=== PATIENT | male | born 1945 | race Caucasian/White ===

== ENCOUNTER 2016-12-17 11:35 | Observation (INO) | payer MEDICARE, MEDICAID ==
[~2016-12-17] VITALS: Ht 172.7 cm; Wt 78.0 kg
[2016-12-17] VITALS (7 sets, daily range): BP systolic 129–164; BP diastolic 69–80; PULSE 49–65; RESP 16–48; TEMP 97.8; O2SAT 96–98
--- NOTE | 2016-12-17 11:49 | PD ---
HPI Chief Complaint: chest pain Time Seen by Provider: 11:44 Travel History International Travel<30 days: No Contact w/Intl Traveler<30days: No Traveled to known affect area: No History of Present Illness HPI With recent history of syncope admitted at [facility] last week, presents to the ER today because he has had 2 days history of substernal chest pains which she states gets up to a 4 out of 10 at times, worsens with exertion. He states that it is gone now. He was seen at the OR this morning for the chest pains and was told to come to the ER. He denies any nausea, vomiting, shortness of breath, fevers, coughing, or any other symptoms. Modifying Factors: None Associated Signs & Symptoms: Chest pains Risk Factors: None PFSH Social History Tobacco Use: No Allergies-Medications (Allergen,Severity, Reaction): Coded Allergies: No Known Allergies (Unverified , 12/17/16) Reported Meds & Prescriptions Reported Meds & Active Scripts Active Reported Terazosin (Terazosin HCl) 5 Mg Cap 5 Mg PO HS Metoprolol Tartrate 25 Mg Tab 25 Mg PO BID Mobic (Meloxicam) 15 Mg Tab 15 Mg PO DAILY Vitamin B-12 (Cyanocobalamin) 1,000 Mcg Subl 1,000 Mcg SL DAILY Vitamin D3 (Cholecalciferol) 2,000 Unit Cap 2,000 Units PO DAILY Aspirin 81 Mg Tabdr 81 Mg PO DAILY Review of Systems Except as stated in HPI: all other systems reviewed are Neg Physical Exam Narrative GENERAL: Elderly male patient currently not in acute distress, awake and oriented 3. SKIN: Warm and dry. HEAD: Atraumatic. Normocephalic. EYES: Pupils equal and round. No scleral icterus. No injection or drainage. ENT: No nasal bleeding or discharge. Mucous membranes pink and moist. NECK: Trachea midline. No JVD. CARDIOVASCULAR: Slow and regular rhythm. No murmur appreciated. Pulses are present and equal bilaterally. RESPIRATORY: No accessory muscle use. Clear to auscultation. Breath sounds equal bilaterally. GASTROINTESTINAL: Abdomen soft, non-tender, nondistended. Hepatic and splenic margins not palpable. MUSCULOSKELETAL: No obvious deformities. No clubbing. No cyanosis. No edema. NEUROLOGICAL: Awake and alert. No obvious cranial nerve deficits. Motor grossly within normal limits. Normal speech. PSYCHIATRIC: Appropriate mood and affect; insight and judgment normal. Data Data Last Documented VS Vital Signs Date Time Temp Pulse Resp B/P Pulse Ox O2 Delivery O2 Flow Rate FiO2 12/17/16 11:56 49 18 97 Nasal Cannula 2 12/17/16 11:56 164/80 129/70 12/17/16 11:48 97.8 Orders Electrocardiogram (12/17/16 11:44) Ckmb (Isoenzyme) Profile (12/17/16 11:44) Complete Blood Count With Diff (12/17/16 11:44) Comprehensive Metabolic Panel (12/17/16 11:44) Magnesium (Mg) (12/17/16 11:44) Prothrombin Time / Inr (Pt) (12/17/16 11:44) Act Partial Throm Time (Ptt) (12/17/16 11:44) Troponin I (12/17/16 11:44) Chest, Single Ap (12/17/16 11:44) Ecg Monitoring (12/17/16 11:44) Bilateral Bp Monitoring (12/17/16 11:44) Iv Access Insert/Monitor (12/17/16 11:44) Oximetry (12/17/16 11:44) Oxygen Administration (12/17/16 11:44) Labs Laboratory Tests Test 12/17/16 12:10 White Blood Count 10.0 TH/MM3 Red Blood Count 4.41 MIL/MM3 Hemoglobin 11.8 GM/DL Hematocrit 35.7 % Mean Corpuscular Volume 80.9 FL Mean Corpuscular Hemoglobin 26.9 PG Mean Corpuscular Hemoglobin 33.2 % Concent Red Cell Distribution Width 13.5 % Platelet Count 251 TH/MM3 Mean Platelet Volume 8.9 FL Neutrophils (%) (Auto) 72.0 % Lymphocytes (%) (Auto) 17.2 % Monocytes (%) (Auto) 8.8 % Eosinophils (%) (Auto) 1.5 % Basophils (%) (Auto) 0.5 % Neutrophils # (Auto) 7.2 TH/MM3 Lymphocytes # (Auto) 1.7 TH/MM3 Monocytes # (Auto) 0.9 TH/MM3 Eosinophils # (Auto) 0.2 TH/MM3 Basophils # (Auto) 0.0 TH/MM3 CBC Comment DIFF FINAL Differential Comment Prothrombin Time 10.8 SEC Prothromb Time International 1.0 RATIO Ratio Activated Partial 27.0 SEC Thromboplast Time Sodium Level 140 MEQ/L Potassium Level 4.4 MEQ/L Chloride Level 106 MEQ/L Carbon Dioxide Level 27.1 MEQ/L Anion Gap 7 MEQ/L Blood Urea Nitrogen 20 MG/DL Creatinine 0.75 MG/DL Estimat Glomerular Filtration 102 ML/MIN Rate Random Glucose 105 MG/DL Calcium Level 9.1 MG/DL Magnesium Level 2.0 MG/DL Total Bilirubin 0.2 MG/DL Aspartate Amino Transf 10 U/L (AST/SGOT) Alanine Aminotransferase 17 U/L (ALT/SGPT) Alkaline Phosphatase 97 U/L Total Creatine Kinase 49 U/L Troponin I LESS THAN 0.02 NG/ML Total Protein 6.9 GM/DL Albumin 3.1 GM/DL MDM Medical Decision Making Medical Screen Exam Complete: Yes Emergency Medical Condition: Yes Medical Record Reviewed: Yes Interpretation(s) EKG shows that his bradycardia at a rate of 48 bpm with no signs of acute ST-T changes. There is a partial right bundle branch block pattern. Laboratory Tests Test 12/17/16 12:10 Red Blood Count 4.41 MIL/MM3 (4.50-5.90) Hemoglobin 11.8 GM/DL (13.0-17.0) Hematocrit 35.7 % (39.0-51.0) Mean Corpuscular Hemoglobin 26.9 PG (27.0-34.0) Neutrophils (%) (Auto) 72.0 % (16.0-70.0) Monocytes (%) (Auto) 8.8 % (0.0-8.0) Blood Urea Nitrogen 20 MG/DL (7-18) Aspartate Amino Transf 10 U/L (15-37) (AST/SGOT) Troponin I LESS THAN 0.02 NG/ML (0.02-0.05) Albumin 3.1 GM/DL (3.4-5.0) Last 24 hours Impressions Chest X-Ray 12/17/16 1144 Signed Impressions: Service Date/Time: Saturday, December 17, 2016 11:46 - CONCLUSION: No acute cardiopulmonary process. Haider German MD Differential Diagnosis Chest painsdysrhythmias versus ACS versus metabolic issues Narrative Course Patient has significant bradycardia was a suspect could be contributing to his intermittent chest pain and syncope. My plan would be to admit the patient for further evaluation and treatment. However, in the ER, he is not having current chest pain. Case is discussed with Dr. Andres for admission for further evaluation. Diagnosis Primary Impression: OTHER CHEST PAIN Additional Impression: Symptomatic bradycardia Admitting Information Admitting Physician Requests: Admit Hang Molina MD Dec 17, 2016 11:48 Hang Molina MD Dec 17, 2016 11:48
[2016-12-17] MEDS ORDERED: VITA100021 SL (12:07)
[2016-12-17] MEDS ORDERED: VITA2000 PO (12:07)
[2016-12-17] MEDS ORDERED: TERA5CAP3 PO (12:07)
[2016-12-17] MEDS ORDERED: ASPI1TAB69 PO (12:07)
[2016-12-17] MEDS ORDERED: METO25TA3 PO (12:07)
[2016-12-17] MEDS ORDERED: MOBI15TA PO (12:07)
--- NOTE | 2016-12-17 12:15 | RADRPT ---
EXAM DATE/TIME: 12/17/2016 11:46 [facility] COMPARISON: No previous studies available for comparison. INDICATIONS : Chest pain. MEDICAL HISTORY : None. SURGICAL HISTORY : None. ENCOUNTER: Initial ACUITY: 1 day PAIN SCORE: 0/10 LOCATION: Bilateral chest FINDINGS: A single view of the chest demonstrates the lungs to be symmetrically aerated without evidence of mas s, infiltrate or effusion. The cardiomediastinal contours are unremarkable. Osseous structures are intact with some degenerative spurring of the dorsal spine. CONCLUSION: No acute cardiopulmonary process. Haider German MD on December 17, 2016 at 12:13 Board Certified Radiologist. This report was verified electronically.
[2016-12-17 12:32] LABS: AUTOMATED NEUTROPHIL # 7.2 TH/MM3 (1.8-7.7); BASOPHIL % 0.5 % (0.0-2.0); EOSINOPHIL # 0.2 TH/MM3 (0-0.4); EOSINOPHIL % 1.5 % (0.0-4.0); HEMATOCRIT 35.7 % (39.0-51.0); HEMO FLAGS DIFF FINAL; LYMPH % 17.2 % (9.0-44.0); LYMPHOCYTE # 1.7 TH/MM3 (1.0-4.8); MEAN CELL VOLUME 80.9 FL (80.0-100.0); MEAN CORPUSCULAR HEMOGLOBIN 26.9 PG (27.0-34.0); MEAN CORPUSCULAR HGB CONC 33.2 % (32.0-36.0); MONO % 8.8 % (0.0-8.0); PLATELET COUNT 251 TH/MM3 (150-450); RED BLOOD COUNT 4.41 MIL/MM3 (4.50-5.90); RED CELL DISTRIBUTION WIDTH 13.5 % (11.6-17.2)
[2016-12-17 12:42] LABS: PROTHROMBIN TIME - PATIENT 10.8 SEC (9.8-11.6)
[2016-12-17 12:52] LABS: ANION GAP 7 MEQ/L (5-15); AST (GOT) 10 U/L (15-37); BICARBONATE 27.1 MEQ/L (21.0-32.0); BLOOD UREA NITROGEN 20 MG/DL (7-18); CHLORIDE 106 MEQ/L (98-107); GLOMERULAR FILTRATION RATE 102 ML/MIN (>89); POTASSIUM 4.4 MEQ/L (3.5-5.1); SODIUM (NA) 140 MEQ/L (136-145)
[2016-12-17 12:56] LABS: ALKALINE PHOSPHATASE 97 U/L (45-117); ALT (GPT) 17 U/L (12-78); TOTAL BILIRUBIN ADULT 0.2 MG/DL (0.2-1.0)
[2016-12-17 12:59] LABS: CREATINE KINASE 49 U/L (39-308)
[2016-12-17] MEDS ORDERED: NALOXONE HCL 0.4 MG/ML AMP IV PRN (15:00)
[2016-12-17] MEDS ORDERED: ACETAMINOPHEN 325 MG TAB PO PRN ×2 (15:00)
[2016-12-17] MEDS ORDERED: NITROGLYCERIN 0.4 MG SL 25 TABS/BTL SL PRN (15:00)
[2016-12-17] MEDS ORDERED: TEMAZEPAM 15 MG CAP PO PRN (15:00)
[2016-12-17] MEDS ORDERED: ONDANSETRON HCL 4 MG/2 ML VIAL IVP PRN (15:00)
[2016-12-17] MEDS ORDERED: ALPRAZolam 0.25 MG TAB PO PRN (15:00)
[2016-12-17] MEDS ORDERED: SODIUM CHLORIDE 0.9% FLUSH 10 ML FLUSH IV FLUSH PRN (15:00)
--- NOTE | 2016-12-17 15:17 | HHI.HP ---
[facility] Admission Diagnosis chest pains/bradycardia Diagnoses: (1) Syncope and collapse (2) Benign hypertension (3) Atypical chest pain (4) Unstable angina (5) Symptomatic bradycardia Chief Complaint: Chest pain Travel History International Travel<30 Days: No Contact w/Intl Traveler <30 Da: No Traveled to Known Affected Are: No History of Present Illness 71 yrs old man with a PMH of Prostate cancer, Hypertension was advised by his PCP at the [facility] today to seek medical attention to the nearest ED for evaluation of continuing syncopal episode along with chest pain described as substernal without any radiation or associated diaphoresis rated over 5/10 in intensity not relieved with nitroglycerin sublingual. Chest pain is also associated with shortness of breath. Patient was seen recently and admitted at [facility] last weekend when he was treated for 2 days secondary to syncopal episode along with chest pain. He reported that he had normal studies done and discharged in stable condition to me however continue to have repeated syncopal episode with collapse along with substernal chest pain. He denies any GI bleeds, or head trauma. Review of Systems Other 12 systems reviewed and are negative except for the one mentioned in history of present illness Past Family Social History Past Medical History Hypertension Hyperlipidemia CAD History of prostate cancer Past Surgical History Left total hip arthroplasty 2016 Surgery for prostate cancer, radiation Reported Medications Terazosin (Terazosin HCl) 5 Mg Cap 5 Mg PO HS Metoprolol Tartrate 25 Mg Tab 25 Mg PO BID Mobic (Meloxicam) 15 Mg Tab 15 Mg PO DAILY Vitamin B-12 (Cyanocobalamin) 1,000 Mcg Subl 1,000 Mcg SL DAILY Vitamin D3 (Cholecalciferol) 2,000 Unit Cap 2,000 Units PO DAILY Aspirin 81 Mg Tabdr 81 Mg PO DAILY Allergies: Coded Allergies: No Known Allergies (Unverified , 12/17/16) Family History Family history positive for diabetes and heart disease Social History Denies current tobacco, alcohol or illicit drug intake Physical Exam Vital Signs Vital Signs Date Time Temp Pulse Resp B/P Pulse Ox O2 Delivery O2 Flow Rate FiO2 12/17/16 11:56 49 18 97 Nasal Cannula 2 12/17/16 11:56 18 98 Nasal Cannula 2 12/17/16 11:56 98 Nasal Cannula 2 12/17/16 11:56 164/80 129/70 12/17/16 11:48 97.8 49 18 164/80 97 Physical Exam GENERAL: This is a well-nourished, well-developed patient, in no apparent distress. SKIN: No rashes, ecchymoses or lesions. Cool and dry. HEAD: Atraumatic. Normocephalic. No temporal or scalp tenderness. EYES: Pupils equal round and reactive. Extraocular motions intact. No scleral icterus. No injection or drainage. ENT: Nose without bleeding, purulent drainage or septal hematoma. Throat without erythema, tonsillar hypertrophy or exudate. Uvula midline. Airway patent. NECK: Trachea midline. No JVD or lymphadenopathy. Supple, nontender, no meningeal signs. CARDIOVASCULAR: Regular rate and rhythm without murmurs, gallops, or rubs. RESPIRATORY: Clear to auscultation. Breath sounds equal bilaterally. No wheezes , rales, or rhonchi. GASTROINTESTINAL: Abdomen soft, non-tender, nondistended. No hepato-splenomegaly , or palpable masses. No guarding. MUSCULOSKELETAL: Extremities without clubbing, cyanosis, or edema. No joint tenderness, effusion, or edema noted. No calf tenderness. Negative Homans sign bilaterally. NEUROLOGICAL: Awake and alert. Cranial nerves II through XII intact. Motor and sensory grossly within normal limits. Five out of 5 muscle strength in all muscle groups. Normal speech. Laboratory Laboratory Tests Test 12/17/16 12:10 White Blood Count 10.0 Red Blood Count 4.41 Hemoglobin 11.8 Hematocrit 35.7 Mean Corpuscular Volume 80.9 Mean Corpuscular Hemoglobin 26.9 Mean Corpuscular Hemoglobin 33.2 Concent Red Cell Distribution Width 13.5 Platelet Count 251 Mean Platelet Volume 8.9 Neutrophils (%) (Auto) 72.0 Lymphocytes (%) (Auto) 17.2 Monocytes (%) (Auto) 8.8 Eosinophils (%) (Auto) 1.5 Basophils (%) (Auto) 0.5 Neutrophils # (Auto) 7.2 Lymphocytes # (Auto) 1.7 Monocytes # (Auto) 0.9 Eosinophils # (Auto) 0.2 Basophils # (Auto) 0.0 CBC Comment DIFF FINAL Differential Comment Prothrombin Time 10.8 Prothromb Time International 1.0 Ratio Activated Partial 27.0 Thromboplast Time Sodium Level 140 Potassium Level 4.4 Chloride Level 106 Carbon Dioxide Level 27.1 Anion Gap 7 Blood Urea Nitrogen 20 Creatinine 0.75 Estimat Glomerular Filtration 102 Rate Random Glucose 105 Calcium Level 9.1 Magnesium Level 2.0 Total Bilirubin 0.2 Aspartate Amino Transf 10 (AST/SGOT) Alanine Aminotransferase 17 (ALT/SGPT) Alkaline Phosphatase 97 Total Creatine Kinase 49 Troponin I LESS THAN 0.02 Total Protein 6.9 Albumin 3.1 Result Diagram: 12/17/16 1210 12/17/16 1210 Imaging Last Impressions Chest X-Ray 12/17/16 1144 Signed Impressions: Service Date/Time: Saturday, December 17, 2016 11:46 - CONCLUSION: No acute cardiopulmonary process. Haider German MD Assessment and Plan Problem List: (1) Unstable angina ICD Code: I20.0 Status: Acute (2) Symptomatic bradycardia ICD Code: R00.1 Status: Acute (3) Atypical chest pain ICD Code: R07.89 Status: Acute (4) Benign hypertension ICD Code: I10 Status: Acute Assessment and Plan 71-year-old man with Unstable angina Symptomatic bradycardia Syncope -ACS ruled out per protocol with serial cardiac enzyme and EKG -check 2-D echo, lipid profile -Nucleus stress test in a.m. -Consult cardiology -Continue with nitroglycerin sublingual when necessary, aspirin and hold beta charlie secondary to bradycardia. We will use instead calcium channel charlie Syncopal episode with collapse -Recently admitted to [facility] 12/10/16 through 12/12/16 and all studies performed including head CT and carotid ultrasound per patients were all negative. Will request reports Hypertension -Hold beta charlie and start Norvasc Hyperlipidemia: Lipitor 10 mg at bedtime Check Lipid profile History of prostate BPH Patient is refusing finasteride Code Status Full code Discussed Condition With Patient, Chun Andres MD Dec 17, 2016 15:17
[2016-12-17] MEDS ORDERED: ENALAPRILAT 1.25 MG/ML VIAL IV PUSH PRN (15:30)
[2016-12-17] MEDS ORDERED: RESP: ALBUTEROL 2.5 MG/IPRATROPIUM 0.5 MG NEB (PRN) NEB (15:30)
[2016-12-17 17:45] LABS: CREATINE KINASE 46 U/L (39-308)
[2016-12-17] MEDS ORDERED: ATORVASTATIN 10 MG TAB PO SCH (21:00)
[2016-12-17] MEDS: SODIUM CHLORIDE 0.9% FLUSH 10 ML FLUSH IV FLUSH SCH (21:31)
--- NOTE | 2016-12-17 22:38 | MB ---
cc: CAMERON RAMEY MD DATE OF CONSULTATION 12/17/16 HISTORY OF PRESENT ILLNESS Mr. Powers is a 71 year old white male with history of hypertension and prostate cancer. He was seen at [facility] recently for syncope and history of chest pain. He was discharged home and sent to the [facility]. He was seen at the [facility] today and was still complaining of moderate chest discomfort which was sharp and was not relieved with nitroglycerine. He has no shortness of breath, paroxysmal nocturnal dyspnea, orthopnea, or edema. PAST MEDICAL HISTORY 1. Hypertension 2. Dyslipidemia 3. Coronary artery disease 4. Prostate cancer 5. Left total hip arthroplasty 6. Surgery and radiation for prostate cancer MEDICATIONS 1. Baby aspirin 2. Vitamin D3 3. Vitamin B12 4. Mobic 5. Metoprolol 25 mg twice a day 6. Terazosin ALLERGIES None. SOCIAL HISTORY The patient does not smoke. He does not drink alcohol. FAMILY HISTORY Positive for heart disease. REVIEW OF SYSTEMS Otherwise negative. PHYSICAL EXAMINATION VITAL SIGNS: Blood pressure 140/69, pulse 54 and regular. HEENT: Negative, 2+ carotid upstrokes, no bruits. LUNGS: Clear. HEART: Regular with no murmurs, rubs or gallops ABDOMEN: Soft, no bruits. EXTREMITIES: Without edema, 2+ distal pulses. NEUROLOGIC: Grossly nonfocal. CARDIOLOGY STUDIES Electrocardiogram was reviewed and showed sinus bradycardia and right bundle branch block. LABORATORY DATA Hemoglobin 11.8, potassium 4.4, creatinine 0.75, AST 10, ALT 17, troponin less than 0.02. BNP 37. DIAGNOSES 1. Unspecified angina 2. Recent syncope 3. Sinus bradycardia 4. Hypertension DISPOSITION Mr. Dwyer will be monitored on telemetry. We will hold his beta charlie due to his bradycardia. Norvasc was started for his hypertension. He will be scheduled for adenosine myocardial perfusion study tomorrow to evaluate for ischemia. We will obtain echocardiogram to evaluate his left ventricular function. I will follow him for cardiology during his hospitalization. He will then follow up at the [facility] after discharge. Cameron Ramey MD OMarie/ /5:10 PM /10:27 PM [facility]
[2016-12-17 22:54] LABS: CREATINE KINASE 43 U/L (39-308)
[2016-12-18] VITALS (11 sets, daily range): BP systolic 112–155; BP diastolic 60–80; PULSE 52–94; RESP 16–18; TEMP 98.4; O2SAT 96–100
--- NOTE | 2016-12-18 00:01 | EC ---
Study Study Date:12/17/2016 STUDY CONCLUSIONS SUMMARY - Left ventricle: The cavity size was normal. Wall thickness was normal. Systolic function was normal. The estimated ejection fraction was 55%. Wall motion was normal; there were no regional wall motion abnormalities. - Mitral valve: Mild regurgitation. - Tricuspid valve: Mild regurgitation. If LV function is below 40, please consider prescribing an ACEI or ARB or document rationale for non-use. PROCEDURE DATA STUDY STATUS: Elective. Procedure: Transthoracic echocardiography. Image quality was good. Scanning was performed from the parasternal, apical, and subcostal acoustic windows. Study completion: The patient tolerated the procedure well. Transthoracic echocardiography. M-mode, complete 2D, complete spectral Doppler, and color Doppler. Height: Height: 68in. Weight: Weight: 170.6lb. Body mass index: BMI: 26kg/m^2. Body surface area: BSA: 1.91m^2. Patient status: Inpatient. CARDIAC ANATOMY LEFT VENTRICLE: The cavity size was normal. Wall thickness was normal. Systolic function was normal. The estimated ejection fraction was 55%. Wall motion was normal; there were no regional wall motion abnormalities. AORTIC VALVE: Trileaflet; normal thickness leaflets. Doppler: Transvalvular velocity was within the normal range. There was no stenosis. No regurgitation. Valve area: 2.08cm^2 (Vmax). Indexed valve area: 1.09cm^2/m^2 (Vmax). AORTA: Aortic root: The aortic root was normal in size. MITRAL VALVE: Structurally normal valve. Doppler: Transvalvular velocity was within the normal range. There was no evidence for stenosis. Mild regurgitation. Peak gradient: 2mm Hg (D). LEFT ATRIUM: The atrium was normal in size. RIGHT VENTRICLE: The cavity size was normal. Wall thickness was normal. PULMONIC VALVE: Doppler: Transvalvular velocity was within the normal range. There was no evidence for stenosis. No regurgitation. TRICUSPID VALVE: Structurally normal valve. Doppler: Transvalvular velocity was within the normal range. Mild regurgitation. PULMONARY ARTERY: The main pulmonary artery was normal-sized. Systolic pressure was within the normal range. RIGHT ATRIUM: The atrium was normal in size. PERICARDIUM: There was no pericardial effusion. SYSTEMIC VEINS: Inferior vena cava: The vessel was normal in size. Patient weight: 170.6lb _Ejection fraction:_ 65-75% _Fractional shortening:_ 32% up to 5Kg 5-11.5Kg 11.6-22.9Kg 23-45Kg 45-57Kg Aortic Root 7-13 <17 13-22 17-27 17-27 LA diam 6-13 <23 24-38 33-47 37-40 RVID 10-17 7-15 7-15 7-18 8-17 LVIDd 12-22 <32 24-38 33-47 37-40 LVPW 2-4 3-6 5-7 6-8 7-8 IVS 2-4 3-6 5-7 6-8 7-8 BASIC MEASUREMENTS ADULT NORMAL Left ventricle LV internal dimension, ED, chordal 46.9 mm 43-52 level, PLAX LV internal dimension, ES, chordal 37.6 mm 23-38 level, PLAX Fractional shortening, chordal level, *20 % >29 PLAX LV posterior wall thickness, ED 9.43 mm IVS/LVPW ratio, ED 0.97 <1.3 Ventricular septum Septal thickness, ED 9.19 mm Aortic valve Leaflet separation 22 mm 15-26 BASIC MEASUREMENTS ADULT NORMAL Aortic valve Leaflet separation 22 mm 15-26 Aorta Root diameter, ED 30 mm 20-37 Left atrium Anterior-posterior dimension, ES 36 mm 19-40 Anterior-posterior dimension index, ES 1.88 cm/m^2 <2.2 LA/aortic root ratio 1.2 DOPPLER MEASUREMENTS ADULT NORMAL Main pulmonary artery Pressure, S 30 mm Hg =30 Aortic valve Peak velocity, S 141 cm/s Valve area, Vmax 2.08 cm^2 Valve area index, Vmax 1.09 cm^2/m^2 Mitral valve Peak E-wave velocity 71.6 cm/s Peak A-wave velocity 92.8 cm/s Deceleration time *246 ms 150-230 Peak gradient, D 2 mm Hg Peak E/A ratio 0.8 Maximal regurgitant velocity 243 cm/s Tricuspid valve Regurgitant peak velocity 235 cm/s Peak RV-RA gradient, S 22 mm Hg Maximal regurgitant velocity 235 cm/s Systemic veins Estimated CVP 10 mm Hg Right ventricle RV pressure, S *34 mm Hg <30 Pulmonic valve Peak velocity, S 102 cm/s LEGEND: Mean values are shown as u=mean value. Asterisk (*) baer values outside specified normal range. Prepared and signed by Cameron Samuel [id number]
[2016-12-18 04:11] LABS: HDL CHOLESTEROL 46.9 MG/DL (40.0-60.0)
--- NOTE | 2016-12-18 08:24 | HHI.PR ---
Subjective Remarks Follow-up atypical chest pain 12/18/16-patient seen and examined, currently nothing by mouth and denies any chest pain since last night Objective Vitals Vital Signs Date Time Temp Pulse Resp B/P Pulse Ox O2 Delivery O2 Flow Rate FiO2 12/18/16 03:23 64 18 129/64 96 Room Air 12/18/16 02:09 99 Room Air 12/18/16 02:09 58 18 99 Room Air 12/17/16 22:43 64 48 162/77 98 Room Air 12/17/16 21:25 97 12/17/16 19:44 65 16 135/72 96 Room Air 12/17/16 17:00 54 18 140/69 97 Room Air 12/17/16 15:30 50 18 152/72 98 Room Air 12/17/16 11:56 49 18 97 Nasal Cannula 2 12/17/16 11:56 18 98 Nasal Cannula 2 12/17/16 11:56 98 Nasal Cannula 2 12/17/16 11:56 164/80 129/70 12/17/16 11:48 97.8 49 18 164/80 97 Result Diagram: 12/17/16 1210 12/17/16 1210 Imaging Last Impressions Chest X-Ray 12/17/16 1144 Signed Impressions: Service Date/Time: Saturday, December 17, 2016 11:46 - CONCLUSION: No acute cardiopulmonary process. Haider German MD Objective Remarks GENERAL: NAD SKIN: Warm and dry. HEAD: Normocephalic. EYES: No scleral icterus. No injection or drainage. NECK: Supple, trachea midline. No JVD or lymphadenopathy. CARDIOVASCULAR: Regular rate and rhythm without murmurs, gallops, or rubs. RESPIRATORY: Breath sounds equal bilaterally. No accessory muscle use. GASTROINTESTINAL: Abdomen soft, non-tender, nondistended. MUSCULOSKELETAL: No cyanosis, or edema. BACK: Nontender without obvious deformity. No CVA tenderness. A/P Problem List: (1) Unstable angina ICD Code: I20.0 Status: Acute (2) Symptomatic bradycardia ICD Code: R00.1 Status: Acute (3) Atypical chest pain ICD Code: R07.89 Status: Acute (4) Benign hypertension ICD Code: I10 Status: Acute Assessment and Plan 71-year-old man with Unstable angina Symptomatic bradycardia Syncope -ACS ruled out per protocol with serial cardiac enzyme and EKG -2-D echo pending -Nucleus stress test this a.m. 12/18/16 -Appreciate input from cardiology -Continue with nitroglycerin sublingual when necessary, aspirin and continue to hold beta charlie secondary to bradycardia. Continue with calcium channel charlie Syncopal episode with collapse -Recently admitted to [facility] 12/10/16 through 12/12/16 and all studies performed including head CT and carotid ultrasound per patients were all negative. Will request reports -However stable since admission Hypertension -Hold beta charlie and continue Norvasc Hyperlipidemia: Lipitor 10 mg at bedtime LDL 54 History of prostate cancer BPH Patient is refusing finasteride Chun Andres MD Dec 18, 2016 08:24
[2016-12-18] MEDS ORDERED: ASPIRIN EC 81 MG TABEC PO SCH (09:00)
[2016-12-18] MEDS: amLODIPine BESYLATE 5 MG TAB PO SCH ×2 (09:00→11:24)
[2016-12-18] MEDS: SODIUM CHLORIDE 0.9% FLUSH 10 ML FLUSH IV FLUSH SCH (09:17)
--- NOTE | 2016-12-18 10:54 | EKG ---
Date Performed: 12/17/2016 Time Performed: 11:45:02 PTAGE: 71 years EKG: SINUS BRADYCARDIA RIGHT BUNDLE BRANCH BLOCK ABNORMAL ECG NO PREVIOUS TRACING DOCTOR: Farzaneh Bain Interpretating Date/Time 12/18/2016 10:52:42
[2016-12-18] MEDS ORDERED: REGADENOSON INJ 0.4 MG/5 ML SYR ONE (12:42)
--- NOTE | 2016-12-18 15:02 | RADRPT ---
EXAM DATE/TIME: 12/18/2016 11:50 [facility] COMPARISON: No previous studies available for comparison. INDICATIONS : Mid chest pain for two days. Syncope. Angina. DOSE: 25.8 mCi Tc99m Myoview at stress. 8.1 mCi Tc99m Myoview at rest. 0.4 mg Lexiscan STRESS SYMPTOMS: Lightheaded. EJECTION FRACTION: 68% MEDICAL HISTORY : Hypertension. Carcinoma, prostate. Cardiovascular disease SURGICAL HISTORY : Left hip. ENCOUNTER: Initial ACUITY: 2 days PAIN SCALE: 5/10 LOCATION: Midsternal chest TECHNIQUE: The patient underwent pharmacologic stress with infusion of prescribed dose. Continuous ECG tracing was monitored during stress. Gated SPECT imaging was performed after stress and conventional SPECT i maging was performed at rest. The examination was performed on a SPECT/CT scanner, both attenuation and non-corrected datasets were reviewed. FINDINGS: DISTRIBUTION: The maximum perfused segment at stress is in the septal wall. PERFUSION STUDY: The pattern of perfusion at stress is within normal limits. GATED STUDY: There is intact wall motion and thickening without hypokinetic or dyskinetic segments. CONCLUSION: 1. No significant reversibility to suggest ischemia. 2. Normal wall motion with ejection fraction 68%. RISK CATEGORY: Low (<1% Annual Mortality Rate) Rosendo Mcneill MD on December 18, 2016 at 14:58 Board Certified Radiologist. This report was verified electronically.
--- NOTE | 2016-12-18 16:12 | EKG ---
Date Performed: 12/17/2016 Time Performed: 19:52:55 PTAGE: 71 years EKG: Sinus rhythm RIGHT BUNDLE BRANCH BLOCK Since previous tracing, no significant change noted ABNORMAL ECG PREVIOUS TRACING : 12/17/2016 16.52 DOCTOR: Usman Singh Interpretating Date/Time 12/18/2016 16:12:26
--- NOTE | 2016-12-18 16:12 | EKG ---
Date Performed: 12/17/2016 Time Performed: 16:52:20 PTAGE: 71 years EKG: SINUS BRADYCARDIA RIGHT BUNDLE BRANCH BLOCK Since previous tracing, no significant change n oted ABNORMAL ECG PREVIOUS TRACING : 12/17/2016 11.45 DOCTOR: Usman Singh Interpretating Date/Time 12/18/2016 16:11:57
--- NOTE | 2016-12-18 16:15 | EKG ---
Date Performed: 12/18/2016 Time Performed: 03:20:19 PTAGE: 71 years EKG: Sinus rhythm RIGHT BUNDLE BRANCH BLOCK Since previous tracing, no significant change noted ABNORMAL ECG PREVIOUS TRACING : 12/17/2016 19.52 DOCTOR: Usman Singh Interpretating Date/Time 12/18/2016 16:13:20
--- NOTE | 2016-12-18 16:15 | EKG ---
Date Performed: 12/17/2016 Time Performed: 21:53:44 PTAGE: 71 years EKG: Sinus rhythm RIGHT BUNDLE BRANCH BLOCK ABNORMAL ECG Since PREVIOUS TRACING , no significant change noted WARNING: DATA QUALITY MAY AFFECT INTERPRET ATION PREVIOUS TRACIN12/17/2016 19.52 DOCTOR: Usman Singh Interpretating Date/Time 12/18/2016 16:12:51
[2016-12-18] MEDS ORDERED: AMLO5 PO (16:59)
[2016-12-18] MEDS ORDERED: LIPI10TA PO (16:59)
--- NOTE | 2016-12-18 17:01 | HHI.PR ---
Addendum to Inpatient Note Addendum Reason: Additional Documentation Additional Information Nuclear stress test negative therefore the patient will be discharged home Discharge patient to home Condition on discharge: Improved Regular Diet as tolerated Ad Amina activity Rx written:Norvasc 5 mg daily; Lipitor 10mg HS Follow-up with primary care physician in 1 week Chun Andres MD Dec 18, 2016 17:01
--- NOTE | 2016-12-18 18:27 | PD.CARD.PN ---
Subjective Subjective Remarks No CP or SOB, feels better Objective Medications Current Medications Medications (Trade) Dose Ordered Sig/Óscar Route Start Time Stop Time Status Last Admin (NS Flush) 2 ml UNSCH PRN IV FLUSH 12/17/16 15:00 (NS Flush) 2 ml BID IV FLUSH 12/17/16 21:00 12/18/16 09:17 (Tylenol) 650 mg Q4H PRN PO 12/17/16 15:00 (Zofran Inj) 4 mg Q6H PRN IVP 12/17/16 15:00 (Restoril) 15 mg HS PRN PO 12/17/16 15:00 (Tylenol) 650 mg Q6H PRN PO 12/17/16 15:00 (Narcan Inj) 0.4 mg UNSCH PRN IV 12/17/16 15:00 (Nitrostat Sl) 0.4 mg Q5M PRN SL 12/17/16 15:00 (Xanax) 0.25 mg TID PRN PO 12/17/16 15:00 (Ecotrin Ec) 81 mg DAILY PO 12/18/16 09:00 12/18/16 09:17 (Vasotec Inj) 1.25 mg Q6H PRN IV PUSH 12/17/16 15:30 (Norvasc) 5 mg DAILY PO 12/18/16 09:00 12/18/16 11:24 (Lipitor) 10 mg HS PO 12/17/16 21:00 12/17/16 20:57 Vital Signs / I&O Vital Signs Date Time Temp Pulse Resp B/P Pulse Ox O2 Delivery O2 Flow Rate FiO2 12/18/16 14:15 98.4 67 18 126/80 98 12/18/16 11:22 68 17 155/74 100 Room Air 12/18/16 10:06 52 17 135/62 97 Room Air 12/18/16 08:50 55 16 112/60 97 Room Air 12/18/16 03:23 64 18 129/64 96 Room Air 12/18/16 02:09 99 Room Air 12/18/16 02:09 58 18 99 Room Air 12/17/16 22:43 64 48 162/77 98 Room Air 12/17/16 21:25 97 12/17/16 19:44 65 16 135/72 96 Room Air Physical Exam GENERAL: In NAD SKIN: Warm and dry. HEAD: Normocephalic. EYES: No scleral icterus. No injection or drainage. NECK: Supple, trachea midline. No JVD or lymphadenopathy. CARDIOVASCULAR: Regular rate and rhythm without murmurs, gallops, or rubs. RESPIRATORY: Breath sounds equal bilaterally. No accessory muscle use. GASTROINTESTINAL: Abdomen soft, non-tender, nondistended. MUSCULOSKELETAL: No cyanosis, or edema. Laboratory Laboratory Tests Test 12/17/16 12/18/16 22:05 03:22 Total Creatine Kinase 43 U/L Troponin I LESS THAN 0.02 NG/ML Triglycerides Level 100 MG/DL Cholesterol Level 121 MG/DL LDL Cholesterol 54 MG/DL HDL Cholesterol 46.9 MG/DL Cholesterol/HDL Ratio 2.57 RATIO Imaging Last Impressions Myocardial Perfusion Scan Nuc Med 12/18/16 0600 Signed Impressions: Service Date/Time: Sunday, December 18, 2016 11:50 - CONCLUSION: 1. No significant reversibility to suggest ischemia. 2. Normal wall motion with ejection fraction 68%%. RISK CATEGORY: Low (<1%% Annual Mortality Rate) Rosendo Mcneill MD Chest X-Ray 12/17/16 1144 Signed Impressions: Service Date/Time: Saturday, December 17, 2016 11:46 - CONCLUSION: No acute cardiopulmonary process. Haider German MD Assessment and Plan Problem List: (1) Atypical chest pain (2) Benign hypertension (3) Syncope and collapse Assessment and Plan: h/o Assessment and Plan Stress test normal. Symptoms improved. Continue risk factor modification. Discharge home[facility]. Cameron Samuel MD Dec 18, 2016 18:27
== END 2016-12-18 18:30 | disposition home or self-care (01) ==
LOC: NEPE 11:35 → INTOOBSV 13:44 → NEDA 13:44 → NEDH 19:08 → HCIS 12-18 14:15 → UNDODISIN 12-18 18:30
PROVIDERS: ADMIT Hospitalist; ATTEND Hospitalist
DX: R00.1 Bradycardia, unspecified (principal); R07.9 Chest pain, unspecified; I45.19 Other right bundle-branch block; R55 Syncope and collapse; I10 Essential (primary) hypertension; I25.110 Atherosclerotic heart disease of native coronary artery with unstable angina pectoris; E78.5 Hyperlipidemia, unspecified; Z96.642 Presence of left artificial hip joint; Z85.46 Personal history of malignant neoplasm of prostate; Z79.899 Other long term (current) drug therapy; Z83.3 Family history of diabetes mellitus; Z82.49 Family history of ischemic heart disease and other diseases of the circulatory system
CPT/HCPCS: 71010; 78452; 80053; 80061; 82550; 83735; 83880; 84484; 85025; 85610; 85730; 93005; 93017; 93306; 99285; A9502; G0378; J2785